=== PATIENT | female | born 1965 ===

== ENCOUNTER 2021-10-11 09:58 | Day surgery (SDC) | payer OTHER | END 2021-10-11 15:10 | disposition home or self-care (01) | LOC: AMB-ENDOS 09:58 | PROVIDERS: ATTEND Colon & Rectal Surgery | DX: K52.89 Other specified noninfective gastroenteritis and colitis (principal); Z20.822 Contact with and (suspected) exposure to COVID-19; I10 Essential (primary) hypertension ==